=== PATIENT | female | born 1940 | race Caucasian/White ===

== ENCOUNTER 2017-12-24 05:39 | Day surgery (SDC) | payer OTHER ==
[~2017-12-24] VITALS: Ht 152.4 cm; Wt 65.8 kg
[~2017-12-24 05:39] MED LIST: DIOVAN HCT 1601 EACH PO; ZOCOR40 MG PO
[2017-12-24] MEDS ORDERED: ULTRACET PO (12:10)
[2017-12-24] MEDS ORDERED: KEFLEX250 MG PO (12:10)
== END 2017-12-24 14:00 | disposition home or self-care (01) ==
LOC: CIR.AMB 05:39
DX: N39.41 Urge incontinence (principal); N32.81 Overactive bladder
CPT/HCPCS: 64581; C1778

== ENCOUNTER 2017-12-31 09:00 | Day surgery (SDC) | payer OTHER ==
[~2017-12-31 09:00] MED LIST changes: +KEFLEX250 MG PO; +ULTRACET PO
== END 2017-12-31 13:20 | disposition home or self-care (01) ==
LOC: CIR.AMB 09:00
DX: N39.41 Urge incontinence (principal)